=== PATIENT | female | born 1940 | race Caucasian/White ===

== ENCOUNTER 2017-02-18 17:52 | Inpatient (IN) ==
--- NOTE | 2017-02-18 18:30 | Emergency Department Note ---
Disposition Clinical Impression: Intertrochanteric fracture of left hip Qualifiers: Encounter type: initial encounter Fracture type: closed Fracture alignment: nondisplaced Qualified Code(s): S72.145A - Nondisplaced intertrochanteric fracture of left femur, initial encounter for closed fracture Disposition: Admitted As Inpatient Condition: Good Forms: ED Satisfaction Letter Time of Disposition: 20:01 Fall HPI - General Chief Complaint: ED Fall Stated Complaint: fall Time Seen by Provider: 02/18/17 17:55 Source: family, EMS Mode of arrival: EMS Limitations: other (pleasantly demented) Nursing Notes Reviewed: Yes Vital Signs Reviewed: Yes - History of Present Illness HPI Narrative: 76 year old female with family at bedside states that while she was at the alf today she had a wtinessed mechanical fall. She is currently in the faciliy due to a coccyx injury that she has. Patiet fell on her left side and injured her left elbow and hip. they are unsure if she injured her head or neck and denies any use of blood thinners. Patient points to her left elbow and hip. She - Related Data Allergies Allergy/AdvReac Type Severity Reaction Status Date / Time aspirin Allergy Hives Verified 02/18/17 18:04 codeine Allergy Hives Verified 02/18/17 18:04 Sulfa (Sulfonamide Allergy Hives Verified 02/18/17 18:04 Antibiotics) Constitutional: Denies: fever, chills, weakness, weight change Eyes: Denies: eye pain, eye discharge, vision change ENT ED: Denies: ear pain, throat pain, dental pain, hearing loss, epistaxis, congestion, dysphagia Cardiovascular: Denies: chest pain, palpitations, dyspnea on exertion, edema, syncope Respiratory: Denies: cough, dyspnea, wheezes, hemoptysis, stridor Gastrointestinal: Denies: abdominal pain, nausea, vomiting, diarrhea, constipation, hematemesis, melena, hematochezia Genitourinary: Denies: dysuria, frequency, hematuria, discharge Musculoskeletal: Reports: other (left hip and elbow pain). Denies: back pain, neck pain, arthralgia, myalgia Integumentary: Denies: rash, abrasion, lesions Neurological: Denies: headache, weakness, numbness, paresthesias, confusion, abnormal gait, vertigo Psychiatric: Denies: anxiety, depression, suicidal thoughts, homicidal thoughts , auditory hallucinations, visual hallucinations Endocrine: Denies: fatigue Hematological/Lymphatic: Denies: easy bleeding, easy bruising Allergic/Immunologic: Denies: facial swelling, urticaria Fall PMH - Past Medical History Medical history: Reports: dementia, GERD, hypertension, other Psychiatric history: Reports: anxiety, depression, panic disorder - Social History Smoking Status: Never smoker Alcohol use: Reports: none Drug use: Reports: none Physical Exam - General Limitations: no limitations General appearance: anxious, cachectic - Head Head exam: atraumatic, normocephalic, normal inspection - Eye Eye exam: Present: normal appearance, PERRL, EOMI - Expanded Eye Exam Pupils: Left: reactive - ENT ENT exam: normal exam, normal oropharynx, mucous membranes moist - Expanded ENT Exam External ear exam: Present: normal external inspection Mouth exam: Present: normal external inspection Teeth exam: Present: normal inspection Throat exam: Present: normal inspection - Neck Neck exam: Present: normal inspection, full ROM, trachea midline - Chest Chest inspection: Present: normal inspection, symmetric chest wall rise - Respiratory Respiratory exam: Present: normal lung sounds bilaterally - Cardiovascular Cardiovascular exam: Present: normal rhythm, tachycardia, normal heart sounds - Abdominal Exam Abdominal exam: Present: soft, Non-Tender. Absent: tenderness, distention, guarding, rebound, rigidity - Extremities Exam Extremities exam: Present: normal inspection, full ROM. Absent: tenderness, pedal edema - Expanded Upper Extremity Exam Shoulder exam: Present: normal inspection, full ROM Arm exam: Present: normal inspection, full ROM Elbow exam: Present: normal inspection, full ROM, tenderness (left elbow) Forearm/Wrist exam: Present: normal inspection, full ROM Hand exam: Present: normal inspection, full ROM Vascular exam: Normal: capillary refill, radial pulse - Expanded Lower Extremity Exam Hip/Pelvis exam: Present: normal inspection, tenderness (left hip tenderness, limited range of motion) Upper leg exam: Present: normal inspection, full ROM Knee exam: Present: normal inspection, full ROM Lower leg exam: Present: normal inspection, full ROM Ankle exam: Present: normal inspection, full ROM Foot/toe exam: Present: normal inspection, full ROM Neurovascular/Tendon exam: Absent: motor deficit, sensory deficit, tendon deficit - Back Exam Back exam: Present: normal inspection, full ROM. Absent: tenderness - Neurological Exam Neurological exam: Present: alert, oriented X3 - Expanded Neurological Exam Patient oriented to: Present: person, place, time Speech: Present: fluid speech Coma Scale Eye Opening: Spontaneous Coma Scale Motor Response: Obeys Commands Coma Scale Verbal Response: Oriented Coma Scale Total: 15 - Psychiatric Psychiatric exam: Present: normal affect, normal mood - Skin Skin exam: Present: warm, dry, intact, normal color Course Course Narrative: we will obtain CT/XR for evaluation - Reevaluation(s) Reevaluation #1: updated patient family on resultsl and they are agreeable to stay. Time: 20:00 - Consultations Consultation #1: discussed case with Dr. Keith and he has agreed to see as consult in the hospital Time: 19:58 Consultation #2: discussed case with Dr. Gamboa and he has accepted patinet to his service. Time: 20:01 Vital Signs Temperature 98.4 F 02/18/17 17:58 Pulse Rate 117 02/18/17 17:58 Respiratory Rate 18 02/18/17 17:58 Blood Pressure 155/88 02/18/17 17:58 O2 Sat by Pulse Oximetry 94 02/18/17 17:58 Temperature 98.4 F 02/18/17 17:58 Pulse Rate 117 02/18/17 17:58 Respiratory Rate 18 02/18/17 17:58 Blood Pressure 155/88 02/18/17 17:58 O2 Sat by Pulse Oximetry 94 02/18/17 17:58 Oxygen Delivery Oxygen Delivery Room Air
[2017-02-18] MEDS ORDERED: Ondansetron 4 MG/2 ML VIAL IVP ONE (19:59)
[2017-02-18] MEDS ORDERED: *HR* Morphine 2 MG/ML SYRINGE IVP ONE (19:59)
[2017-02-18] MEDS ORDERED: Ondansetron 4 MG/2 ML VIAL IVP PRN (20:58)
[2017-02-18] MEDS ORDERED: *HR* Morphine 2 MG/ML SYRINGE IVP PRN (20:58)
[2017-02-18] MEDS ORDERED: traMADol 50 MG TABLET PO PRN (20:59)
[2017-02-18] MEDS ORDERED: OLANZapine 5 MG TAB.RAPDIS PO PRN (20:59)
--- NOTE | 2017-02-18 21:10 | Internal Med History&Physical ---
Date of Encounter: 02/22/17 Time of Encounter: 21:08 Assessment and Plan (1) Intertrochanteric fracture of left hip Current visit: Yes Status: Acute Orthopedic consultation. We check for labs. Electrocardiogram. Physical therapy and occupational therapy and social workers to see the patient. Patient is focal. Qualifiers: Encounter type: initial encounter Fracture type: closed Fracture alignment: nondisplaced Qualified Code(s): S72.145A - Nondisplaced intertrochanteric fracture of left femur, initial encounter for closed fracture (2) Depression Current visit: Yes Status: Acute Continue her psychiatric medications. She denies any suicidal ideation. Daughter mentioned that she has depression with some catatonic features specially when she gets anxious Qualifiers: Qualified Code(s): F32.9 - Major depressive disorder, single episode, unspecified (3) Preoperative clearance Current visit: Yes Status: Acute With regards to preoperative clearance have discussed with the daughter that patient will have moderate perioperative cardiac risk related to poor functional capacity. I will check patient labs 12-lead electrocardiogram and will provide official risk assessment afterwards (4) Urinary tract infection Current visit: Yes Status: Acute Patient is a ciprofloxacin should be completed 02/20/2017 continue course. Qualifiers: Qualified Code(s): N39.0 - Urinary tract infection, site not specified Internal Medicine - H&P: HPI Chief complaint: fall History of present illness: Ms. Arias is a 76 year old female patient who had moved to a intermediate facility 2 weeks ago after she had fallen and sustained coccyx fracture and after it was noted that she is having functional decline and significant weight loss approximately 20 to 25 pounds over the past 6 month presents to the emergency room today after a fall. She was noted to have a mechanical fall at the intermediate. She denied passing out. Work up in the emergency room showed evidence of left-sided hip fracture. Patient has been falling more frequently the past 6 months. Patient's daughter said that she has been more depressed recently lost significant weight denied any suicidal ideations. No notable focal weakness. Patient is on ciprofloxacin for urinary tract infection should complete in 2 days Past Med Surg Social Fam HX - Past Medical History Medical history: dementia, GERD, hypertension, other Psychiatric history: anxiety, depression, panic disorder - Social History Smoking Status: Never smoker Alcohol use: none Drug use: none - Family History Father Twin of Family Member: Yes, Fraternal Living Status: Hx Family Cardiac Disorders: Yes Internal Medicine - H&P: Meds Acetaminophen [Tylenol] 650 mg PO Q8H PRN 02/18/17 [History] Ciprofloxacin HCl [Cipro] 500 mg PO BID 02/18/17 [History] Multivitamin-Min/Iron/FA/Vit K [Multi-Day Plus Minerals Tablet] 1 each PO DAILY 02/18/17 [History] OLANZapine [Zyprexa] 1.25 mg PO DAILY PRN 02/18/17 [History] PARoxetine HCl [Paroxetine HCl] 5 mg PO TID 02/18/17 [History] Polyethylene Glycol 3350 [MiraLAX] 17 gm PO DAILY PRN 02/18/17 [History] Tramadol HCl [Ultram] 50 mg PO Q6H PRN 02/18/17 [History] 3 Allergy/AdvReac Type Severity Reaction Status Date / Time aspirin Allergy Hives Verified 02/18/17 18:04 codeine Allergy Hives Verified 02/18/17 18:04 Sulfa (Sulfonamide Allergy Hives Verified 02/18/17 18:04 Antibiotics) All Systems PM: A 10-system review of systems was performed and is negative for pertinent findings except as documented above in the HPI. Review of systems: 10 point review of systems is negative except for HPI - Constitutional Vitals: Temp Pulse Resp BP Pulse Ox 98.4 F 117 18 155/88 94 02/18/17 17:58 02/18/17 17:58 02/18/17 17:58 02/18/17 17:58 02/18/17 17:58 Internal Med - H&P Results - Labs CBC & Chem 7: 02/22/17 06:01 02/21/17 04:54
[2017-02-18 21:48] LABS: Basophils % 0.1 %; Hematocrit 32.7 % (35.3-44.9); Hemoglobin 10.6 g/dL (11.5-15.4); Immature Granulocytes % 0.4 % (0-4); Immature Platelets 1.4 % (1.1-6.1); Lymphocytes # 0.7 K/mcL (0.6-4.6); Lymphocytes % 5.6 %; Mean Corpuscular HGB Conc 32.4 g/dL (31.6-35.5); Mean Corpuscular Hemoglobin 27.7 pg (28.0-33.3); Mean Corpuscular Volume 85.4 fL (83.0-100.0); Mean Platelet Volume 8.5 fL (9.4-12.4); Monocytes # 0.6 K/mcL (0.0-1.3); Monocytes % 4.8 %; Neutrophils # 10.7 K/mcL (1.6-8.9); Platelet Count 373 K/mcL (140-400); Red Blood Count 3.83 M/mcL (3.82-4.97); Red Cell Distribution Width 13.8 % (11.5-14.5); Segmented Neutrophils % 89.1 %
[2017-02-18 22:03] LABS: Alanine Aminotransferase 35 Units/L (0-55); Albumin 3.4 g/dL (3.5-5.0); Albumin/Globulin Ratio 0.9 (1.1-2.2); Alkaline Phosphatase 312 Units/L (38-126); Aspartate Amino Transferase 24 Units/L (5-34); BUN/Creatinine Ratio 21 (6-26); Bilirubin,Total 0.9 mg/dL (0.2-1.2); Blood Urea Nitrogen 16 mg/dL (7-20); Calcium 9.9 mg/dL (8.6-10.8); Carbon Dioxide 28 mEq/L (19-29); Chloride 99 mEq/L (98-109); Globulin 3.7 g/dL (2.4-3.5); Glucose 129 mg/dL (70-99); Magnesium 1.9 mg/dL (1.6-2.6); Osmolality,Calculated 285 (280-300); Potassium 4.6 mEq/L (3.5-4.5); Sodium 136 mEq/L (136-145); Total Protein 7.1 g/dL (6.0-8.3); eGFR For African Americans > 60 (> 60); eGFR For Non-African Americans > 60 (> 60)
[2017-02-18 22:23] LABS: INR 1.1; Prothrombin Time 11.7 Seconds (9.4-12.1)
[2017-02-18 22:26] LABS: Activated Partial Thrombo Time 24.9 Seconds (26.0-36.0)
[2017-02-19] MEDS ORDERED: D5% in 0.9% NACL 1,000 ML IVC SCH (00:15)
--- NOTE | 2017-02-19 07:38 | Orthopedic Consult Note ---
Date of Encounter: 02/19/17 Time of Encounter: 07:36 History of Present Illness HPI: Ms. Arias is a 76 year old female Status post falls in the past presently in a half-way for the past 2 weeks recovery from spinal fractures. Patient with a new fall now with left hip pain. Patient is awake and alert but not oriented. Discussed patient's normal state with her daughter patient normally ambulates on her own has bouts of dementia and depression. Physical exam Left lower extremity shortened externally rotated decreased range of motion secondary to pain CT scan reviewed shows a left intertrochanteric hip fracture. Recommendation based on previous activity level left hip open reduction intramedullary nail fixation. Risks benefits as well as recovery reviewed with the daughter. Plan is for surgery 7 AM Tuesday Past Med Surg Social Fam HX - Past Medical History Medical history: dementia, GERD, hypertension, other Psychiatric history: anxiety, depression, panic disorder - Social History Smoking Status: Never smoker Alcohol use: none Drug use: none - Family History Father Twin of Family Member: Yes, Fraternal Living Status: Hx Family Cardiac Disorders: Yes Medications and Allergies Acetaminophen [Tylenol] 650 mg PO Q8H PRN 02/18/17 [History] Ciprofloxacin HCl [Cipro] 500 mg PO BID 02/18/17 [History] Multivitamin-Min/Iron/FA/Vit K [Multi-Day Plus Minerals Tablet] 1 each PO DAILY 02/18/17 [History] OLANZapine [Zyprexa] 1.25 mg PO DAILY PRN 02/18/17 [History] PARoxetine HCl [Paroxetine HCl] 5 mg PO TID 02/18/17 [History] Polyethylene Glycol 3350 [MiraLAX] 17 gm PO DAILY PRN 02/18/17 [History] Tramadol HCl [Ultram] 50 mg PO Q6H PRN 02/18/17 [History] 3 Allergy/AdvReac Type Severity Reaction Status Date / Time aspirin Allergy Hives Verified 02/18/17 18:04 codeine Allergy Hives Verified 02/18/17 18:04 Sulfa (Sulfonamide Allergy Hives Verified 02/18/17 18:04 Antibiotics) All Systems Reviewed: A 10-system review of systems was performed and is negative for pertinent findings except as documented above in the HPI. Physical Exam - Constitutional Vitals: Temp Pulse Resp BP Pulse Ox 97.7 F 105 15 123/81 94 02/19/17 07:11 02/19/17 07:11 02/19/17 07:11 02/19/17 07:11 02/19/17 07:11 Results - Labs Result Diagrams: 02/18/17 21:39 02/18/17 21:39 Labs: Abnormal lab results WBC 12.0 K/mcL (4.3-11.1) H 02/18/17 21:39 Hgb 10.6 g/dL (11.5-15.4) L 02/18/17 21:39 Hct 32.7 % (35.3-44.9) L 02/18/17 21:39 MCH 27.7 pg (28.0-33.3) L 02/18/17 21:39 MPV 8.5 fL (9.4-12.4) L 02/18/17 21:39 Neutrophils # 10.7 K/mcL (1.6-8.9) H 02/18/17 21:39 APTT 24.9 Seconds (26.0-36.0) L 02/18/17 21:39 Potassium 4.6 mEq/L (3.5-4.5) H 02/18/17 21:39 Glucose 129 mg/dL (70-99) H 02/18/17 21:39 POC Glucose 115 (58-89) H 02/19/17 00:09 Alkaline Phosphatase 312 Units/L (38-126) H 02/18/17 21:39 Albumin 3.4 g/dL (3.5-5.0) L 02/18/17 21:39 Globulin 3.7 g/dL (2.4-3.5) H 02/18/17 21:39 Albumin/Globulin Ratio 0.9 (1.1-2.2) L 02/18/17 21:39 H & H 02/18/17 Range/Units 21:39 Hgb 10.6 L (11.5-15.4) g/dL Hct 32.7 L (35.3-44.9) % All other labs normal. Consult Discharge Plan - Plan Referrals: Dusty Quiroz MD [Primary Care Provider] -
[2017-02-19] MEDS ORDERED: Ondansetron ODT 4 MG TAB.RAPDIS SL PRN (11:11)
[2017-02-19] MEDS ORDERED: *HR* OxyCODONE/APAP 5/325 TABLET PO PRN (11:11)
[2017-02-19] MEDS ORDERED: *HR* Morphine 2 MG/ML SYRINGE IVP PRN (11:12)
--- NOTE | 2017-02-19 11:26 | Internal Med Progress Note ---
Date of Encounter: 02/19/17 Time of Encounter: 11:25 - Assessment and plan (1) Intertrochanteric fracture of left hip Current Visit: Yes Status: Acute Assessment and plan: Reviewed imaging studies Ortho on board scheduled for surgery in AM Reviewed CXR- no acute infiltrates / consolidations CT of Pelvis : Left hip intertrochanteric, comminuted and angulated fx Subacute b/l sacral aler fractures EKG - Sinus tachycardia, VR -105, LVH changes. No St elevation / depression Will get a 2 D Echo Pt is at intermediate risk for major surgeries like ORIF Will check prealbumin levels Qualifiers: Encounter type: initial encounter Fracture type: closed Fracture alignment: nondisplaced Qualified Code(s): S72.145A - Nondisplaced intertrochanteric fracture of left femur, initial encounter for closed fracture (2) Failure to thrive in adult Current Visit: Yes Status: Acute Assessment and plan: Possible due to Depression and underline dementia will talk to family check Pre albumin levels Nutrition consulted Protein supplements with each meal (3) Dementia Current Visit: Yes Status: Acute Assessment and plan: Will tlak to family about this Qualifiers: Qualified Code(s): F03.90 - Unspecified dementia without behavioral disturbance (4) Depression Current Visit: Yes Status: Acute Assessment and plan: Resumed home meds Qualifiers: Qualified Code(s): F32.9 - Major depressive disorder, single episode, unspecified (5) Urinary tract infection Current Visit: Yes Status: Acute Assessment and plan: will finish home PO abx Qualifiers: Qualified Code(s): N39.0 - Urinary tract infection, site not specified (6) DVT prophylaxis Current Visit: Yes Status: Acute Assessment and plan: Started her on Lovenox SQ inj (7) Protein-calorie malnutrition, severe Current Visit: Yes Status: Acute - Subjective Interval history: Ms. Arias is a 76 year old female patient who had moved to a custodial facility 2 weeks ago after she had fallen and sustained coccyx fracture and after it was noted that she is having functional decline and significant weight loss approximately 20 to 25 pounds over the past 6 month presents to the emergency room today after a fall. She was noted to have a mechanical fall at the custodial. She denied passing out. Work up in the emergency room showed evidence of left-sided hip fracture. Patient has been falling more frequently the past 6 months. Pt is alert, awake and oriented to self only. She did followed few commands. Denied any CP / SOB. - Constitutional Vitals: Temp Pulse Resp BP Pulse Ox 97.7 F 96 16 151/86 93 02/19/17 10:38 02/19/17 10:38 02/19/17 10:38 02/19/17 10:38 02/19/17 10:38 General appearance: Present: A&O X 1, pleasant, no acute distress - Head Head exam: Present: atraumatic, normal inspection - Respiratory Respiratory exam: Present: decreased breath sounds, wheezes. Absent: rales, respiratory distress, rhonchi - Cardiovascular Cardiovascular exam: Present: RRR, +S1, +S2. Absent: diastolic murmur, gallop, rubs, systolic murmur - GI/Abdominal GI/Abdominal exam: Present: normal bowel sounds, soft. Absent: rebound, rigid, tenderness - Extremities Exam Extremities exam: Present: tenderness (Left hip). Absent: calf tenderness, pedal edema Additional comments: Decreased ROM in Left hip due to pain - Neurological Exam Neurological exam: Present: alert, altered - Psychiatric Psychiatric exam: Present: depressed Internal Medicine: Result - Labs CBC & Chem 7: 02/18/17 21:39 02/18/17 21:39 Labs: Short CBC 02/18/17 Range/Units 21:39 WBC 12.0 H (4.3-11.1) K/mcL Hgb 10.6 L (11.5-15.4) g/dL Hct 32.7 L (35.3-44.9) % Plt Count 373 (140-400) K/mcL Neutrophils # 10.7 H (1.6-8.9) K/mcL BMP 02/18/17 21:39 Sodium 136 Potassium 4.6 H Chloride 99 Carbon Dioxide 28 BUN 16 Creatinine 0.75 Glucose 129 H Calcium 9.9 Liver Function 02/18/17 Range/Units 21:39 Total Bilirubin 0.9 (0.2-1.2) mg/dL AST 24 (5-34) Units/L ALT 35 (0-55) Units/L Alkaline Phosphatase 312 H (38-126) Units/L Albumin 3.4 L (3.5-5.0) g/dL - ABG Interpretation ABG results: PT/INR, D-dimer PT 11.7 Seconds (9.4-12.1) 02/18/17 21:39 Consult Discharge Plan - Plan Referrals: Dusty Quiroz MD [Primary Care Provider] -
[2017-02-19] MEDS ORDERED: *HR* Enoxaparin 30 MG/0.3 ML SYRINGE SQ SCH (11:39)
--- NOTE | 2017-02-19 17:05 | Anesthesia Evaluation PreOp ---
Date of Encounter: 02/19/17 Time of Encounter: 17:03 - Past History Planned Operation: Left Hip IM Nailing Cardiac History: HTN (not medically treated--per family, associated with pt's panic d/o) Pulmonary History: Denies Any Significant HX TIP TESTER History: Other (H/O dementia--per family, pt does not have dementia but can be in near catatonic state {unresponsive} when severely depressed or anxious) Other Medical History: Other (anxiety/depression/panic disorder--per family, can be severe with pt in near catatonic state ; S/P coccyx fracture 2 weeks ago) Anesthesia History: Past Anesthesia (no prior general anesthesia) Alcohol Use: none Drug use: none Medications and Allergies Acetaminophen [Tylenol] 650 mg PO Q8H PRN 02/18/17 [History] Ciprofloxacin HCl [Cipro] 500 mg PO BID 02/18/17 [History] Multivitamin-Min/Iron/FA/Vit K [Multi-Day Plus Minerals Tablet] 1 each PO DAILY 02/18/17 [History] OLANZapine [Zyprexa] 1.25 mg PO DAILY PRN 02/18/17 [History] PARoxetine HCl [Paroxetine HCl] 5 mg PO TID 02/18/17 [History] Polyethylene Glycol 3350 [MiraLAX] 17 gm PO DAILY PRN 02/18/17 [History] Tramadol HCl [Ultram] 50 mg PO Q6H PRN 02/18/17 [History] 3 Allergy/AdvReac Type Severity Reaction Status Date / Time aspirin Allergy Hives Verified 02/18/17 18:04 codeine Allergy Hives Verified 02/18/17 18:04 Sulfa (Sulfonamide Allergy Hives Verified 02/18/17 18:04 Antibiotics) - Meds/Allergy Pre-op Review Medications Reviewed: Yes Allergies Reviewed: Yes Beta Blockers on Current Med List: No Anesthesia Results - Labs 02/18/17 21:39 02/18/17 21:39 Laboratory Tests 02/18/17 21:39 PT 11.7 INR 1.1 APTT 24.9 L - Imaging EKG: report reviewed (02/18/2017 ST, moderate voltage criteria for LVH, consider noraml variant) Additional studies: 02/19/2017 Echo Impressions: Normal LV systolic function, LVEF 60%. Mild left ventricular diastolic dysfunction. Normal right ventricular size and function. No significant valvular dysfunction. No evidence of pulmonary hypertension. Anesthesia Exam Vital Signs/O2 Sat/Glucose, Most Recent Temp Pulse Resp BP Pulse Ox 97.8 F 105 18 150/80 94 02/19/17 16:33 02/19/17 16:33 02/19/17 16:33 02/19/17 16:33 02/19/17 16:33 Blood Glucose* 122 Height: 5'4''/1.63 m Weight: 72 lbs/32.84 kg - HEENT Mallampati: II Teeth: Edentulous Denture Type: Upper: Complete, Lower: Complete Oral Opening: Greater than 3 - TIP TESTER LOC: Unable to assess (pt somnolent but arousable; able to follow some simple commands but not oriented; history obtained from pt's family {including POA}-- family describes pt's normal state as being oriented but state of confusion/ catatonia arises when severely depressed/anxious) - Cardiac Rhythm: Regular Murmur: Systolic - Pulmonary Breath Sounds: bilateral Clear (distant BS) Respiratory Effort: Symmetrical Anesthesia Assess/Plan ASA Score: 3 (Patient's family (including POA) understand that pt is at increased risk for perioperative complications including myocardial infarct, arrhythmias, CVA, post op vent support/ICU stay, and . Patient's family wish to proceed.) Modified Lukas Scale for Level of Consciousness: Asleep with sluggish response to stimulus (pt responsive to some simple commands) Anesthetic Plan: General Monitoring Plan: Standard Monitors Recovery Plan: PACU
[2017-02-20 01:37] LABS: Basophils % 0.1 %; Hematocrit 30.8 % (35.3-44.9); Immature Granulocytes % 0.4 % (0-4); Immature Platelets 1.6 % (1.1-6.1); Lymphocytes # 0.6 K/mcL (0.6-4.6); Lymphocytes % 5.8 %; Mean Corpuscular HGB Conc 32.5 g/dL (31.6-35.5); Mean Corpuscular Hemoglobin 28.2 pg (28.0-33.3); Mean Platelet Volume 9.1 fL (9.4-12.4); Monocytes # 0.7 K/mcL (0.0-1.3); Monocytes % 6.8 %; Neutrophils # 8.5 K/mcL (1.6-8.9); Platelet Count 323 K/mcL (140-400); Red Blood Count 3.54 M/mcL (3.82-4.97); Red Cell Distribution Width 13.7 % (11.5-14.5); Segmented Neutrophils % 86.9 %
[2017-02-20 01:53] LABS: BUN/Creatinine Ratio 28 (6-26); Blood Urea Nitrogen 21 mg/dL (7-20); Calcium 9.7 mg/dL (8.6-10.8); Carbon Dioxide 27 mEq/L (19-29); Chloride 98 mEq/L (98-109); Chol/HDL Ratio 3.7 (0-4.9); Cholesterol 183 mg/dL (< 200); Glucose 111 mg/dL (70-99); HDL Cholesterol 50 mg/dL (40-59); LDL Cholesterol,Calculated 103 mg/dL (0-99); Osmolality,Calculated 282 (280-300); Potassium 4.4 mEq/L (3.5-4.5); Sodium 134 mEq/L (136-145); Triglycerides 152 mg/dL (< 150); eGFR For African Americans > 60 (> 60); eGFR For Non-African Americans > 60 (> 60)
[2017-02-20 02:25] LABS: Thyroid Stimulating Hormone 1.366 mcIU/mL (0.350-4.840)
[2017-02-20] MEDS ORDERED: Lidocaine -MPF 4% 5 ML AMPUL ONE (07:28)
[2017-02-20] MEDS ORDERED: *HR* Etomidate 40 MG/20 ML VIAL IVP ONE (07:28)
[2017-02-20] MEDS ORDERED: Lidocaine -MPF 2% 2 ML VIAL ONE (07:28)
[2017-02-20] MEDS ORDERED: *HR* FentaNYL (PF) 100 MCG/2 ML VIAL ONE (07:29)
[2017-02-20] MEDS ORDERED: *HR* Propofol 200 MG/20 ML VIAL IVP ONE (07:29)
[2017-02-20] MEDS ORDERED: Acetaminophen IV 1,000 MG/100 ML INFUS..BTL ONE (07:42)
[2017-02-20] MEDS ORDERED: Lacri-Lube 3.5 GM TUBE ONE (08:03)
[2017-02-20] MEDS ORDERED: ceFAZolin 2,000 MG in D5% in Water 100 ML IVPB ONE (08:20)
[2017-02-20] MEDS ORDERED: Ondansetron 4 MG/2 ML VIAL ONE (08:36)
[2017-02-20] MEDS ORDERED: Dexamethasone 4 MG/ML VIAL ONE (08:36)
--- NOTE | 2017-02-20 08:39 | Orthopedic Operative Note ---
Date of procedure: 02/20/17 Pre-op diagnosis: Left hip intratrochanteric fracture Post-op diagnosis: same Procedure: Procedure: Left hip open reduction intramedullary nail fixation Estimated blood loss: 50 cc Hardware: Metal: 10 x 130 Synthes TFN, 85 helical blade, 36 distal locking bolt Operative procedure: The patient was brought to the operating room and placed on the operating room table. After general anesthesia was administered the well leg was place in the well leg treviño and the operative leg was placed in the fracture leg treviño. All pressure points were padded appropriately. The operative extremity was prepped and draped in the sterile surgical fashion patient received IV antibiotic prior to skin incision. A standard direct lateral approach was made over the entry point of the greater trochanter, the incision was made through the skin and subcutaneous tissue hemostasis was obtained with Bovie cautery. Using careful sharp dissection the fascia was identified and incised, flouroscopic assistance was used to identify the entry point. The guidepin was placed at the entry point using fluroscopic assistance, it was over reamed with the proximal reamer. The 10 x 130 degree nail was placed through the entry hole, across the fracture site into the distal fragment the position was confirmed with fluroscopy. A guide pin was placed through the proximal locking guide from the lateral femur through the nail across the fracture site into the femoral head, it was over reamed with the reamer. The 85 helical blade was placed over the guide pin through the nail into the femoral head, locked in place with the proximal locking bolt. The 36 mm Distal locking bolt was placed through the distal locking guide. position of hardware and fracture reduction found to be acceptable with fluroscopic assistance. The wound was irrigated. Fascia was closed with a running #2 PDS suture. The deep tissue was irrigated and closed deep with #1 PDS suture superficially with 0 PDS suture and skin was closed with kyle. The patient was placed in a sterile dressing The patient was extubated and transferred to the recovery room in stable condition. Anesthesia: GETA Surgeon: Edward Keith Condition: stable Disposition: PACU
[2017-02-20] MEDS ORDERED: *HR* Promethazine 25 MG/ML VIAL IVP PRN (08:57)
[2017-02-20] MEDS ORDERED: *HR* HYDROmorphone (PF) 1 MG/ML SYRINGE IVP PRN (08:57)
[2017-02-20 09:36] LABS: Hematocrit 30.8 % (35.3-44.9); Hemoglobin 9.9 g/dL (11.5-15.4)
[2017-02-20] MEDS: *HR* Labetalol 20 MG/4 ML SYRINGE IVP PRN ×3 (09:52→10:15)
--- NOTE | 2017-02-20 10:29 | Anesthesia Evaluation Post Op ---
Date of Encounter: 02/20/17 Time of Encounter: 10:27 - Vital Signs Vital Signs: Vital Signs/O2 Sat/Glucose, Most Current Temp Pulse Resp BP Pulse Ox 02/20/17 10:20 86 18 139/86 90 02/20/17 10:10 91 18 168/96 90 02/20/17 10:00 99.8 F H 92 18 170/105 90 02/20/17 09:50 107 18 164/116 90 02/20/17 09:40 107 18 182/108 91 02/20/17 09:30 104 16 166/97 92 02/20/17 09:20 100.3 F H 102 16 159/90 93 02/20/17 09:10 79 16 147/82 100 02/20/17 09:00 76 12 119/74 100 02/20/17 08:50 100 F H 79 10 104/66 99 02/20/17 06:29 98.7 F 105 16 134/79 96 - Lungs Lungs: Clear Ascult./Percussion - Airway Airway: Non-obstructed - Cardiovascular Baseline Rhythm - Mental Status Mental Status: Uncooperative, Baseline Status - Pain Pain Scale: 1 Pain Scale used: John-Kam (Faces) (1) - Nausea Vomiting Nausea Vomiting: Not Present - Hydration Hydration: Tolerates oral liquids - Discharge PostOp Status: Transfer Patient to floor Anes Supervising Prov Stmt: Pt seen/evaluated. VSS and pt has met criteria for discharge to floor. - MD Fer
[2017-02-20] MEDS ORDERED: traMADol 50 MG TABLET PO PRN (10:53)
[2017-02-20] MEDS ORDERED: Ondansetron ODT 4 MG TAB.RAPDIS SL PRN (10:53)
[2017-02-20] MEDS ORDERED: Naloxone 0.4 MG/ML INJ IVP PRN (10:53)
[2017-02-20] MEDS ORDERED: *HR* Morphine 2 MG/ML SYRINGE IVP PRN (10:53)
[2017-02-20] MEDS ORDERED: Ondansetron 4 MG/2 ML VIAL IVP PRN (10:53)
[2017-02-20] MEDS ORDERED: ceFAZolin 2,000 MG in D5% in Water 100 ML IVPB SCH (10:53)
[2017-02-20] MEDS ORDERED: OLANZapine 5 MG TAB.RAPDIS PO PRN (10:53)
--- NOTE | 2017-02-20 16:03 | Internal Med Progress Note ---
Date of Encounter: 02/20/17 Time of Encounter: 16:01 - Assessment and plan (1) Intertrochanteric fracture of left hip Current Visit: Yes Status: Acute Assessment and plan: s/p Left hip open reduction intramedullary nail fixation Reviewed 2 D Echo - Normal LVEF 60%, mild diastolic dysfunction Cont post op care as per ortho PT / OT eval on heparin for DVT prophylaxis Qualifiers: Encounter type: initial encounter Fracture type: closed Fracture alignment: nondisplaced Qualified Code(s): S72.145A - Nondisplaced intertrochanteric fracture of left femur, initial encounter for closed fracture (2) Failure to thrive in adult Current Visit: Yes Status: Acute Assessment and plan: Possible due to Depression Talked to family.. as per them she has been having major depression with maniac episodes from last 1 to 1 1/2 yrs.. She is been following with psychiatrist , currently he is titrating her Paxil for anxiety So will inc Paxil to 10mg BID today Her Pre albumin levels at low normal @ 16 Nutrition consulted Protein supplements with each meal (3) Dementia Current Visit: Yes Status: Acute Assessment and plan: family denied of any dementia it is more like severe depression Qualifiers: Qualified Code(s): F03.90 - Unspecified dementia without behavioral disturbance (4) Depression Current Visit: Yes Status: Acute Assessment and plan: Resumed home meds inc Paxil to 10mg BID for her anxiety / agitation.. Pt's family ok to try Haldol for now Qualifiers: Qualified Code(s): F32.9 - Major depressive disorder, single episode, unspecified (5) Urinary tract infection Current Visit: Yes Status: Acute Assessment and plan: will finish home PO abx Cipro Qualifiers: Qualified Code(s): N39.0 - Urinary tract infection, site not specified (6) DVT prophylaxis Current Visit: Yes Status: Acute Assessment and plan: Started her on Lovenox SQ inj (7) Protein-calorie malnutrition, severe Current Visit: Yes Status: Acute Assessment and plan: Product Development Carpenter consulted - Subjective Interval history: Ms. Arias is a 76 year old female patient who had moved to a retirement facility 2 weeks ago after she had fallen and sustained coccyx fracture and after it was noted that she is having functional decline and significant weight loss approximately 20 to 25 pounds over the past 6 month presents to the emergency room today after a fall. She was noted to have a mechanical fall at the retirement. She denied passing out. Work up in the emergency room showed evidence of left-sided hip fracture. Patient has been falling more frequently the past 6 months. Pt is alert, awake and oriented to person and place. she is following all the commands. Denied any CP / SOB. Talked to the pt's both daughters at bed side and explained to them about current care. - Constitutional Vitals: Temp Pulse Resp BP Pulse Ox 98.8 F 94 16 155/86 95 02/20/17 12:10 02/20/17 12:10 02/20/17 12:10 02/20/17 12:10 02/20/17 12:10 General appearance: Present: A&O X 2, mild distress (anxious) - Head Head exam: Present: atraumatic, normal inspection - Respiratory Respiratory exam: Present: CTAB. Absent: accessory muscle use, rales, rhonchi, wheezes - Cardiovascular Cardiovascular exam: Present: RRR, +S1, +S2. Absent: diastolic murmur, gallop, rubs, systolic murmur - GI/Abdominal GI/Abdominal exam: Present: soft, no peritoneal signs. Absent: distended, tenderness - Extremities Exam Extremities exam: Absent: calf tenderness, pedal edema, tenderness Additional comments: clean incision and dressing noticed over Left hip - Neurological Exam Neurological exam: Present: alert - Psychiatric Psychiatric exam: Present: anxious Internal Medicine: Result - Labs CBC & Chem 7: 02/20/17 09:28 02/20/17 01:15 Labs: Short CBC 02/20/17 02/20/17 Range/Units 01:15 09:28 WBC 9.8 (4.3-11.1) K/mcL Hgb 10.0 L 9.9 L (11.5-15.4) g/dL Hct 30.8 L 30.8 L (35.3-44.9) % Plt Count 323 (140-400) K/mcL Neutrophils # 8.5 (1.6-8.9) K/mcL BMP 02/20/17 01:15 Sodium 134 L Potassium 4.4 Chloride 98 Carbon Dioxide 27 BUN 21 H Creatinine 0.74 Glucose 111 H Calcium 9.7 - ABG Interpretation ABG results: PT/INR, D-dimer PT 11.7 Seconds (9.4-12.1) 02/18/17 21:39 - Impressions Impressions Fluoroscopy 02/20/17 00:00 IMPRESSION: Intraprocedural fluoroscopic spot images as above. See separate procedure report for more information. D/ / 02/20/2017 11:18:49 Samra Higgins MD / [facility] Interpreting Provider: Samra Higgins MD Hip X-Ray 02/20/17 07:45 IMPRESSION: Status post left hip surgery. D/ / Samina Duffy Cha, MD / Samina Duffy Cha, MD Interpreting Provider: Samina Duffy Cha, MD - VTE Documentation of Mechanical Device: Venous foot pump, device Consult Discharge Plan - Plan Referrals: Dusty Quiroz MD [Primary Care Provider] -
[2017-02-20] MEDS: ceFAZolin 2,000 MG in D5% in Water 100 ML IVPB SCH (16:48)
[2017-02-20] MEDS: *HR* Heparin 5,000 UNIT/ML VIAL SQ SCH (16:48)
[2017-02-20] MEDS: *HR* OxyCODONE/APAP 5/325 TABLET PO PRN (16:50)
[2017-02-21] MEDS: ceFAZolin 2,000 MG in D5% in Water 100 ML IVPB SCH (00:21)
[2017-02-21 05:18] LABS: Hematocrit 28.7 % (35.3-44.9); Immature Granulocytes % 0.5 % (0-4); Lymphocytes # 0.7 K/mcL (0.6-4.6); Lymphocytes % 7.4 %; Mean Corpuscular HGB Conc 31.4 g/dL (31.6-35.5); Mean Corpuscular Hemoglobin 27.4 pg (28.0-33.3); Mean Corpuscular Volume 87.2 fL (83.0-100.0); Mean Platelet Volume 9.3 fL (9.4-12.4); Monocytes # 0.7 K/mcL (0.0-1.3); Monocytes % 7.3 %; Neutrophils # 8.5 K/mcL (1.6-8.9); Platelet Count 316 K/mcL (140-400); Red Blood Count 3.29 M/mcL (3.82-4.97); Red Cell Distribution Width 13.6 % (11.5-14.5); Segmented Neutrophils % 84.8 %
[2017-02-21 05:29] LABS: BUN/Creatinine Ratio 31 (6-26); Blood Urea Nitrogen 24 mg/dL (7-20); Calcium 9.4 mg/dL (8.6-10.8); Carbon Dioxide 30 mEq/L (19-29); Chloride 99 mEq/L (98-109); Glucose 114 mg/dL (70-99); Osmolality,Calculated 289 (280-300); Potassium 4.5 mEq/L (3.5-4.5); Sodium 137 mEq/L (136-145); eGFR For African Americans > 60 (> 60); eGFR For Non-African Americans > 60 (> 60)
[2017-02-21] MEDS: *HR* Heparin 5,000 UNIT/ML VIAL SQ SCH ×2 (05:41→17:06)
--- NOTE | 2017-02-21 08:03 | Internal Med Progress Note ---
Date of Encounter: 02/21/17 Time of Encounter: 08:01 - Assessment and plan (1) Intertrochanteric fracture of left hip Current Visit: Yes Status: Acute Assessment and plan: s/p Left hip open reduction intramedullary nail fixation POD #1 So far stable Hb Cont post op care as per ortho PT / OT eval on SQ heparin for DVT prophylaxis May need out pt bone scan and further treatment for osteoporosis Vit D levels - P Reviewed 2 D Echo - Normal LVEF 60%, mild diastolic dysfunction Qualifiers: Encounter type: initial encounter Fracture type: closed Fracture alignment: nondisplaced Qualified Code(s): S72.145A - Nondisplaced intertrochanteric fracture of left femur, initial encounter for closed fracture (2) Failure to thrive in adult Current Visit: Yes Status: Acute Assessment and plan: Possibly due to Depression Talked to family.. as per them she has been having major depression with maniac episodes from last 1 to 1 1/2 yrs.. She is been following with psychiatrist , currently he is titrating her Paxil for anxiety Seems to be better today with Paxil to 10mg BID Her Pre albumin levels at low normal @ 16 Nutrition consulted Protein supplements with each meal TSH - WNL Vit D, B12, Folic acid- P (3) Dementia Current Visit: Yes Status: Acute Assessment and plan: family denied of any dementia it is more like severe depression Qualifiers: Qualified Code(s): F03.90 - Unspecified dementia without behavioral disturbance (4) Depression Current Visit: Yes Status: Acute Assessment and plan: Resumed home meds inc Paxil to 10mg BID for her anxiety / agitation.. Pt's family ok to try Haldol for now will cont Haldol PRN for now Qualifiers: Qualified Code(s): F32.9 - Major depressive disorder, single episode, unspecified (5) Urinary tract infection Current Visit: Yes Status: Acute Assessment and plan: finished home PO abx Cipro by today Qualifiers: Qualified Code(s): N39.0 - Urinary tract infection, site not specified (6) DVT prophylaxis Current Visit: Yes Status: Acute Assessment and plan: Started her on Lovenox SQ inj (7) Protein-calorie malnutrition, severe Current Visit: Yes Status: Acute Assessment and plan: Chief Of Party consulted - Subjective Interval history: Ms. Arias is a 76 year old female patient who had moved to a senior living facility 2 weeks ago after she had fallen and sustained coccyx fracture and after it was noted that she is having functional decline and significant weight loss approximately 20 to 25 pounds over the past 6 month presents to the emergency room today after a fall. She was noted to have a mechanical fall at the senior living. She denied passing out. Work up in the emergency room showed evidence of left-sided hip fracture. Patient has been falling more frequently the past 6 months. Pt is alert, awake and oriented to person and place. she is following all the commands. Denied any CP / SOB. No events over night. Pt seems to be less anxious today - Constitutional Vitals: Temp Pulse Resp BP Pulse Ox 98.6 F 91 16 148/78 97 02/21/17 06:45 02/21/17 06:45 02/21/17 06:45 02/21/17 06:45 02/21/17 06:45 General appearance: Present: A&O X 2, pleasant, no acute distress, answers questions appropriately - Head Head exam: Present: atraumatic, normal inspection - Respiratory Respiratory exam: Present: decreased breath sounds. Absent: rales, respiratory distress, rhonchi, wheezes - Cardiovascular Cardiovascular exam: Present: RRR, +S1, +S2. Absent: diastolic murmur, gallop, rubs, systolic murmur - GI/Abdominal GI/Abdominal exam: Present: normal bowel sounds, soft. Absent: distended, rebound, rigid, tenderness - Extremities Exam Extremities exam: Absent: calf tenderness, pedal edema, tenderness Additional comments: limted ROM in Left hip... Clean incision.. No drainage - Neurological Exam Neurological exam: Present: alert, oriented X3 - Psychiatric Psychiatric exam: Present: depressed Internal Medicine: Result - Labs CBC & Chem 7: 02/21/17 04:54 02/21/17 04:54 Labs: Short CBC 02/20/17 02/21/17 Range/Units 09:28 04:54 WBC 10.0 (4.3-11.1) K/mcL Hgb 9.9 L 9.0 L (11.5-15.4) g/dL Hct 30.8 L 28.7 L (35.3-44.9) % Plt Count 316 (140-400) K/mcL Neutrophils # 8.5 (1.6-8.9) K/mcL BMP 02/21/17 04:54 Sodium 137 Potassium 4.5 Chloride 99 Carbon Dioxide 30 H BUN 24 H Creatinine 0.78 Glucose 114 H Calcium 9.4 - ABG Interpretation ABG results: PT/INR, D-dimer PT 11.7 Seconds (9.4-12.1) 02/18/17 21:39 - Impressions Impressions Fluoroscopy 02/20/17 00:00 IMPRESSION: Intraprocedural fluoroscopic spot images as above. See separate procedure report for more information. D/ / 02/20/2017 11:18:49 [facility] Higgins MD [facility] Inter[facility]ting Provider: Samra Higgins MD Hip X-Ray 02/20/17 07:45 IMPRESSION: Status post left hip surgery. D/ / Samina Duffy Cha, MD / Samina Duffy Cha, MD Interpreting Provider: Samina Duffy Cha, MD - VTE Documentation of Mechanical Device: Venous foot pump, device Consult Discharge Plan - Plan Referrals: Dusty Quiroz MD [Primary Care Provider] -
--- NOTE | 2017-02-21 10:02 | Orthopedics Progress Note ---
Date of Encounter: 02/21/17 Time of Encounter: 10:02 Subjective Interval history: Patient was seen this morning doing well without complaints. Afebrile vital signs stable. Operative extremity: Neurovascularly intact Dressing clean dry and intact Calves nontender Assessment and plan: Continue with postoperative care Objective Vital signs: Vital Signs Temp Pulse Resp BP Pulse Ox 02/21/17 06:45 98.6 F 91 16 148/78 97 02/21/17 03:46 97.4 F L 93 14 138/74 94 02/20/17 23:25 98.2 F 104 19 143/88 92 02/20/17 19:54 98.5 F 105 20 117/74 92 02/20/17 16:10 98.1 F 69 12 113/76 91 02/20/17 12:10 98.8 F 94 16 155/86 95 02/20/17 11:40 98.2 F 91 16 124/73 92 02/20/17 11:27 93 02/20/17 11:10 98.0 F 84 16 154/83 93 02/20/17 10:50 99.1 F 76 16 118/76 94 02/20/17 10:40 77 16 117/76 94 02/20/17 10:30 99.9 F H 83 16 118/76 97 02/20/17 10:20 86 18 139/86 90 02/20/17 10:10 91 18 168/96 90 Intake and Output 02/20/17 02/21/17 02/21/17 23:59 07:59 15:59 Intake Total 100 / 100 0 / 0 Output Total 325 / 325 100 / 100 Balance -225 / -225 -100 / -100 0 / 0 Intake: IV Fluids 100 / 100 Ancef 2,000 MG In 100 / 100 Dextrose 5% 100 ML @ 200 mls/hr IVPB Q8H [facility] Rx#: [id number] Oral 0 / 0 Output: Straight Cath 200 / 200 Catheter 125 / 125 100 / 100 Other: Weight 36.6 kg - Labs CBC & BMP: 02/21/17 04:54 02/21/17 04:54 Labs: Abnormal lab results RBC 3.29 M/mcL (3.82-4.97) L 02/21/17 04:54 Hgb 9.0 g/dL (11.5-15.4) L 02/21/17 04:54 Hct 28.7 % (35.3-44.9) L 02/21/17 04:54 MCH 27.4 pg (28.0-33.3) L 02/21/17 04:54 MCHC 31.4 g/dL (31.6-35.5) L 02/21/17 04:54 MPV 9.3 fL (9.4-12.4) L 02/21/17 04:54 APTT 24.9 Seconds (26.0-36.0) L 02/18/17 21:39 Carbon Dioxide 30 mEq/L (19-29) H 02/21/17 04:54 BUN 24 mg/dL (7-20) H 02/21/17 04:54 BUN/Creatinine Ratio 31 (6-26) H 02/21/17 04:54 Glucose 114 mg/dL (70-99) H 02/21/17 04:54 POC Glucose 116 (58-89) H 02/20/17 06:00 Alkaline Phosphatase 312 Units/L (38-126) H 02/18/17 21:39 Albumin 3.4 g/dL (3.5-5.0) L 02/18/17 21:39 Globulin 3.7 g/dL (2.4-3.5) H 02/18/17 21:39 Albumin/Globulin Ratio 0.9 (1.1-2.2) L 02/18/17 21:39 Triglycerides 152 mg/dL (< 150) H 02/20/17 01:15 LDL Cholesterol, Calc 103 mg/dL (0-99) H 02/20/17 01:15 - VTE Documentation of Mechanical Device: Intermittent pneumatic compression device Consult Discharge Plan - Plan Referrals: Dusty Quiroz MD [Primary Care Provider] -
[2017-02-21] MEDS: *HR* OxyCODONE/APAP 5/325 TABLET PO PRN (15:27)
--- NOTE | 2017-02-21 15:55 | Electrocardiograph Report ---
[place] [address] Test Date: 2017-02-18 Pat Name: Laura Arias Department: 104 Room: [facility] Gender: F Cashier Checker: JUSTINA : 1940 Requested By: Dayday Martin Order Number: [id number] Reading MD: Hill Leon MD Measurements Intervals [place] Rate: 105 P: 19 WV: 139 QRS: -11 QRSD: 85 T: 39 QT: 324 QTc: 385 Interpretive Statements SINUS TACHYCARDIA MODERATE VOLTAGE CRITERIA FOR LVH BASELINE ARTIFACT COMPLICATES ACCURATE INTERPRETATION Electronically Signed On 02-21-2017 15:53:36 EDT by Hill Leon MD
[2017-02-21 21:54] LABS: Folate 13.9 ng/mL (7.0-31.4)
[2017-02-22] MEDS: *HR* Heparin 5,000 UNIT/ML VIAL SQ SCH ×2 (06:06→16:15)
[2017-02-22 06:16] LABS: Hematocrit 27.8 % (35.3-44.9); Hemoglobin 8.9 g/dL (11.5-15.4); Immature Granulocytes % 0.6 % (0-4); Lymphocytes # 0.7 K/mcL (0.6-4.6); Lymphocytes % 10.2 %; Mean Corpuscular Volume 87.4 fL (83.0-100.0); Mean Platelet Volume 8.8 fL (9.4-12.4); Monocytes # 0.5 K/mcL (0.0-1.3); Monocytes % 7.9 %; Neutrophils # 5.6 K/mcL (1.6-8.9); Platelet Count 312 K/mcL (140-400); Red Blood Count 3.18 M/mcL (3.82-4.97); Red Cell Distribution Width 13.8 % (11.5-14.5); Segmented Neutrophils % 81.3 %
--- NOTE | 2017-02-22 06:28 | Orthopedics Progress Note ---
Date of Encounter: 02/22/17 Time of Encounter: 06:28 Subjective Interval history: Patient was seen this morning doing well without complaints. Afebrile vital signs stable. Operative extremity: Neurovascularly intact Dressing clean dry and intact Calves nontender Assessment and plan: Continue with postoperative care Hemoglobin 8.9 ortho stable for discharge Objective Vital signs: Vital Signs Temp Pulse Resp BP Pulse Ox 02/22/17 04:22 97.9 F 107 17 146/94 95 02/21/17 19:41 97.9 F 100 16 155/96 94 02/21/17 15:23 98.6 F 110 16 152/83 93 02/21/17 11:29 98.2 F 111 16 162/97 94 02/21/17 06:45 98.6 F 91 16 148/78 97 Intake and Output 02/21/17 02/21/17 02/22/17 15:59 23:59 07:59 Intake Total 0 / 0 110 / 110 Balance 0 / 0 110 / 110 Intake: Oral 0 / 0 110 / 110 Other: Meal Dinner Percent of Meal Consumed 10% # Urine Diapers 1 - Labs CBC & BMP: 02/22/17 06:01 02/21/17 04:54 Labs: Abnormal lab results RBC 3.18 M/mcL (3.82-4.97) L 02/22/17 06:01 Hgb 8.9 g/dL (11.5-15.4) L 02/22/17 06:01 Hct 27.8 % (35.3-44.9) L 02/22/17 06:01 MPV 8.8 fL (9.4-12.4) L 02/22/17 06:01 APTT 24.9 Seconds (26.0-36.0) L 02/18/17 21:39 Carbon Dioxide 30 mEq/L (19-29) H 02/21/17 04:54 BUN 24 mg/dL (7-20) H 02/21/17 04:54 BUN/Creatinine Ratio 31 (6-26) H 02/21/17 04:54 Glucose 114 mg/dL (70-99) H 02/21/17 04:54 POC Glucose 116 (58-89) H 02/20/17 06:00 Alkaline Phosphatase 312 Units/L (38-126) H 02/18/17 21:39 Albumin 3.4 g/dL (3.5-5.0) L 02/18/17 21:39 Globulin 3.7 g/dL (2.4-3.5) H 02/18/17 21:39 Albumin/Globulin Ratio 0.9 (1.1-2.2) L 02/18/17 21:39 Triglycerides 152 mg/dL (< 150) H 02/20/17 01:15 LDL Cholesterol, Calc 103 mg/dL (0-99) H 02/20/17 01:15 25-OH Vitamin D Total 18 ng/mL (30-80) L 02/20/17 01:15 - VTE Documentation of Mechanical Device: Venous foot pump, device Consult Discharge Plan - Plan Referrals: Dusty Quiroz MD [Primary Care Provider] -
--- NOTE | 2017-02-22 11:31 | Internal Med Progress Note ---
<DarinrazaKp stoddard - Last Filed: 02/22/17 15:12> Date of Encounter: 02/22/17 Time of Encounter: 11:15 - Assessment and plan (1) Intertrochanteric fracture of left hip Current Visit: Yes Status: Acute Assessment and plan: s/p Left hip open reduction intramedullary nail fixation POD #1 So far stable Hb AT 8.9 Cont post op care as per ortho PT / OT eval on SQ heparin for DVT prophylaxis May need out pt bone scan and further treatment for osteoporosis Reviewed 2 D Echo - Normal LVEF 60%, mild diastolic dysfunction Qualifiers: Encounter type: initial encounter Fracture type: closed Fracture alignment: nondisplaced Qualified Code(s): S72.145A - Nondisplaced intertrochanteric fracture of left femur, initial encounter for closed fracture (2) Depression Current Visit: Yes Status: Acute Assessment and plan: Resumed home meds Paxil at 10mg BID for her anxiety / agitation. will cont Haldol PRN for now Qualifiers: Qualified Code(s): F32.9 - Major depressive disorder, single episode, unspecified (3) Dementia Current Visit: Yes Status: Acute Assessment and plan: family denied of any dementia it is more like severe depression Qualifiers: Qualified Code(s): F03.90 - Unspecified dementia without behavioral disturbance (4) Failure to thrive in adult Current Visit: Yes Status: Acute Assessment and plan: Possibly due to Depression Talked to family.. as per them she has been having major depression with maniac episodes from last 1 to 1 1/2 yrs.. She is been following with psychiatrist , currently he is titrating her Paxil for anxiety Seems to be doing ok with Paxil at 10mg BID Her Pre albumin levels at low normal @ 16 Nutrition consulted Protein supplements with each meal TSH - WNL Vit D, B12, Folic acid- P (5) Protein-calorie malnutrition, severe Current Visit: Yes Status: Acute Assessment and plan: Tobacco Shaker consulted (6) Urinary tract infection Current Visit: Yes Status: Acute Assessment and plan: finished home PO abx Cipro on 02/20. Patient currently afebrile, but she is tachycardic and her hemoglobin has been stable. Will order UA and CXR. Qualifiers: Qualified Code(s): N39.0 - Urinary tract infection, site not specified (7) DVT prophylaxis Current Visit: Yes Status: Acute Assessment and plan: on Lovenox SQ inj - Time Spent With Patient less than 15 minutes - Subjective Interval history: Patient is a 76 yo F with a PMH of dementia, depression, and HTN that presented to the ED s/p fall. Patient had a [facility] due to a previous coccyx fracture . Patient fell on her L side. She denies LOC. X-ray of L elbow showed soft swelling of olecranon. Head CT showed no acute intracranial abnormality. CT of pelvis showd L hip intertrochanteric fracture. Patient was subsequently underwent L hip open reduction intramedullary nail fixation on 02/20/17. Patient has also been very depressed recently according to her family and has had significant weight loss ( 20-25 lbs in 6 months). She is currently on her home meds and is following a psychiatrist. medical services manager is currently working to get her placed in SNF/ ECF. When seen toay, patient was A&Ox2. She seemed very lethargic and was difficult for her to answer my questions. She told me that she has been eating her meals, but last nurse note says she has refused to eat. She denies any headaches, light-headedness, syncope, shortness of breath, nausea, vomiting, chest pain, or L hip pain. - Constitutional Vitals: Temp Pulse Resp BP Pulse Ox 98.2 F 105 16 168/106 94 02/22/17 11:06 02/22/17 11:06 02/22/17 11:06 02/22/17 11:06 02/22/17 11:06 General appearance: Present: cachectic, A&O X 2, pleasant, no acute distress, underweight, answers questions appropriately - Respiratory Respiratory exam: Present: CTAB. Absent: respiratory distress, rhonchi, wheezes , tachypnea - Cardiovascular Cardiovascular exam: Present: +S1, +S2, tachycardia. Absent: diastolic murmur, systolic murmur - GI/Abdominal GI/Abdominal exam: Present: normal bowel sounds, soft. Absent: distended, guarding, rebound, tenderness - Extremities Exam Extremities exam: Present: radial pulses palpable and symmetrical. Absent: pedal edema, tenderness Additional comments: Dressing on surgical site of L hip intact with no signs of erythema, pus, or drainage. No tenderness to palpation to surgical site. Pedal pulses intact bilaterally. Internal Medicine: Result - Labs CBC & Chem 7: 02/22/17 06:01 02/21/17 04:54 Labs: Short CBC 02/22/17 Range/Units 06:01 WBC 6.8 (4.3-11.1) K/mcL Hgb 8.9 L (11.5-15.4) g/dL Hct 27.8 L (35.3-44.9) % Plt Count 312 (140-400) K/mcL Neutrophils # 5.6 (1.6-8.9) K/mcL - ABG Interpretation ABG results: PT/INR, D-dimer PT 11.7 Seconds (9.4-12.1) 02/18/17 21:39 - VTE Documentation of Mechanical Device: Venous foot pump, device Consult Discharge Plan - Plan Referrals: Dusty Quiroz MD [Primary Care Provider] - <Yobani Velasco H - Last Filed: 02/22/17 16:18> Date of Encounter: 02/22/17 - Constitutional Vitals: Temp Pulse Resp BP Pulse Ox 98.9 F 112 16 157/97 93 02/22/17 16:11 02/22/17 16:11 02/22/17 16:11 02/22/17 16:11 02/22/17 16:11 Internal Medicine: Result - Labs CBC & Chem 7: 02/22/17 06:01 02/21/17 04:54 Labs: Short CBC 02/22/17 Range/Units 06:01 WBC 6.8 (4.3-11.1) K/mcL Hgb 8.9 L (11.5-15.4) g/dL Hct 27.8 L (35.3-44.9) % Plt Count 312 (140-400) K/mcL Neutrophils # 5.6 (1.6-8.9) K/mcL - ABG Interpretation ABG results: PT/INR, D-dimer PT 11.7 Seconds (9.4-12.1) 02/18/17 21:39 - Impressions Impressions Chest X-Ray 02/22/17 15:10 IMPRESSION: Stable examination without acute focal process. Tortuous thoracic aorta. Findings of COPD and emphysema. D/ / Adeel Jane MD / Adeel Jane MD Interpreting Provider: Adeel Jane MD - Attending Attestation Correction: Time spent in the process 35 minutes Check a UA and a chest x-ray Fall precautions I examined this patient and my medical decision-making was reviewed with the Resident Physician. I agree with the documented findings, disposition and treatment plan as described except to the extent set forth below.
--- NOTE | 2017-02-22 12:33 | Event Note ---
Date of Encounter: 02/22/17 Time of Encounter: 12:32 Left Hip - IM nailing 02/20/17 - PWB POD#5 Patient seen at bedside. Pain control: yes Participating in PT, but appetite poor. Depression noted. All questions and concerns addressed. Educated on use of incentive spirometer, ambulation, and hydration. D/C plan: ECF
[2017-02-22] MEDS: *HR* OxyCODONE/APAP 5/325 TABLET PO PRN (17:42)
[2017-02-23] MEDS: *HR* Heparin 5,000 UNIT/ML VIAL SQ SCH ×2 (05:30→17:09)
[2017-02-23 06:47] LABS: Hematocrit 26.9 % (35.3-44.9); Hemoglobin 8.4 g/dL (11.5-15.4); Immature Granulocytes % 0.7 % (0-4); Lymphocytes # 0.6 K/mcL (0.6-4.6); Lymphocytes % 10.7 %; Mean Corpuscular HGB Conc 31.2 g/dL (31.6-35.5); Mean Corpuscular Hemoglobin 27.2 pg (28.0-33.3); Mean Corpuscular Volume 87.1 fL (83.0-100.0); Monocytes # 0.4 K/mcL (0.0-1.3); Monocytes % 7.3 %; Neutrophils # 4.9 K/mcL (1.6-8.9); Platelet Count 377 K/mcL (140-400); Red Blood Count 3.09 M/mcL (3.82-4.97); Red Cell Distribution Width 13.7 % (11.5-14.5); Segmented Neutrophils % 81.3 %
[2017-02-23 06:56] LABS: BUN/Creatinine Ratio 42 (6-26); Blood Urea Nitrogen 27 mg/dL (7-20); Calcium 9.3 mg/dL (8.6-10.8); Carbon Dioxide 29 mEq/L (19-29); Chloride 101 mEq/L (98-109); Glucose 119 mg/dL (70-99); Magnesium 1.7 mg/dL (1.6-2.6); Osmolality,Calculated 292 (280-300); Potassium 3.9 mEq/L (3.5-4.5); Sodium 138 mEq/L (136-145); eGFR For African Americans > 60 (> 60); eGFR For Non-African Americans > 60 (> 60)
[2017-02-23] MEDS: *HR* OxyCODONE/APAP 5/325 TABLET PO PRN ×2 (10:14→17:17)
--- NOTE | 2017-02-23 10:50 | Internal Med Progress Note ---
<Kp Wall - Last Filed: 02/23/17 11:04> Date of Encounter: 02/23/17 Time of Encounter: 11:00 - Assessment and plan (1) Intertrochanteric fracture of left hip Current Visit: Yes Status: Acute Assessment and plan: s/p Left hip open reduction intramedullary nail fixation POD #1 HGB dropped from 8.9 to 8.4. Cont post op care as per ortho PT / OT eval on SQ heparin for DVT prophylaxis May need out pt bone scan and further treatment for osteoporosis Reviewed 2 D Echo - Normal LVEF 60%, mild diastolic dysfunction Qualifiers: Encounter type: initial encounter Fracture type: closed Fracture alignment: nondisplaced Qualified Code(s): S72.145A - Nondisplaced intertrochanteric fracture of left femur, initial encounter for closed fracture (2) Depression Current Visit: Yes Status: Acute Assessment and plan: Resumed home meds Paxil at 10mg BID for her anxiety / agitation. will cont Haldol PRN for now Qualifiers: Qualified Code(s): F32.9 - Major depressive disorder, single episode, unspecified (3) Dementia Current Visit: Yes Status: Acute Assessment and plan: family denied of any dementia it is more like severe depression Qualifiers: Qualified Code(s): F03.90 - Unspecified dementia without behavioral disturbance (4) Failure to thrive in adult Current Visit: Yes Status: Acute Assessment and plan: Possibly due to Depression Talked to family.. as per them she has been having major depression with maniac episodes from last 1 to 1 1/2 yrs.. She is been following with psychiatrist , currently he is titrating her Paxil for anxiety Seems to be doing ok with Paxil at 10mg BID Her Pre albumin levels at low normal @ 16 Nutrition consulted Protein supplements with each meal TSH - WNL Vit D, B12, Folic acid- P (5) Protein-calorie malnutrition, severe Current Visit: Yes Status: Acute Assessment and plan: Station Superintendent consulted (6) Urinary tract infection Current Visit: Yes Status: Acute Assessment and plan: finished home PO abx Cipro on 02/20. Patient currently afebrile, but she is tachycardic and her hemoglobin has been stable. UA pending. CXR revealed no acute focal process and showed signs of COPD and emphysema. Qualifiers: Qualified Code(s): N39.0 - Urinary tract infection, site not specified (7) DVT prophylaxis Current Visit: Yes Status: Acute Assessment and plan: on Lovenox SQ inj (8) Acute delirium Current Visit: Yes Status: Acute Assessment and plan: Patient has been showing hallucinations today, describing seeing her daughter across the bed when there was nobody there. Her UA is currently pending and we will try to r/o a UTI. She is currently afebrile. Her paxil dosage was increase to 10 mg BID so that might also be another cause to consider. Follow-up with UA. (9) Tachycardia Current Visit: Yes Status: Acute Assessment and plan: Patient's hemoglobin was dropped from 8.9 to 8.4. Patient's tachycardia might be secondary to blood loss vs UTI. CXR showed no acute focal process. Afebrile. Will follow-up with UA. Continue to monitor hgb. - Subjective Interval history: Patient is a 76 yo F with a PMH of dementia, depression, and HTN that presented to the ED s/p fall. Patient had a witnessed mechanical fall in the [facility] where she was staying due to a previous coccyx fracture . Patient fell on her L side. She denies LOC. X-ray of L elbow showed soft swelling of olecranon. Head CT showed no acute intracranial abnormality. CT of pelvis showd L hip intertrochanteric fracture. Patient was subsequently underwent L hip open reduction intramedullary nail fixation on 02/20/17. Patient has also been very depressed recently according to her family and has had significant weight loss ( 20-25 lbs in 6 months). She is currently on her home meds and is following a psychiatrist. director of volunteer services is currently working to get her placed in SNF/ ECF. When seen today, patient was A&Ox3 but showed clear signs of dementia. She says she feels the same since yesterday but denies any fever, chills, nausea, vomiting, chest pain, abdominal pain, shortness of breath, syncope, light- headedness, or dizziness. Patient also demonstrated visual hallucinations today , stating that her daughter was across the bed from her. I was unable to finish my physical examination because she refused. - Constitutional Vitals: Temp Pulse Resp BP Pulse Ox 98.1 F 65 14 121/73 95 02/23/17 09:08 02/23/17 09:08 02/23/17 09:08 02/23/17 09:08 02/23/17 09:08 General appearance: Present: cachectic, A&O X 3, no acute distress, underweight , answers questions appropriately - Respiratory Respiratory exam: Present: accessory muscle use, CTAB. Absent: respiratory distress, rhonchi, wheezes, tachypnea - Cardiovascular Cardiovascular exam: Present: +S1, +S2, tachycardia. Absent: diastolic murmur, systolic murmur Additional comments: Chest palpitations noted. Internal Medicine: Result - Labs CBC & Chem 7: 02/23/17 06:23 02/23/17 06:23 Labs: Short CBC 02/23/17 Range/Units 06:23 WBC 6.0 (4.3-11.1) K/mcL Hgb 8.4 L (11.5-15.4) g/dL Hct 26.9 L (35.3-44.9) % Plt Count 377 (140-400) K/mcL Neutrophils # 4.9 (1.6-8.9) K/mcL BMP 02/23/17 06:23 Sodium 138 Potassium 3.9 Chloride 101 Carbon Dioxide 29 BUN 27 H Creatinine 0.64 Glucose 119 H Calcium 9.3 Laboratory Tests 02/23/17 06:23 Magnesium 1.7 - ABG Interpretation ABG results: PT/INR, D-dimer PT 11.7 Seconds (9.4-12.1) 02/18/17 21:39 - Impressions Impressions Chest X-Ray 02/22/17 15:10 IMPRESSION: Stable examination without acute focal process. Tortuous thoracic aorta. Findings of COPD and emphysema. D/ / Adeel Jane MD / Adeel Jane MD Interpreting Provider: Adeel Jane MD - VTE Documentation of Mechanical Device: Venous foot pump, device Consult Discharge Plan - Plan Referrals: Dusty Quiroz MD [Primary Care Provider] - <Yobani Velasco H - Last Filed: 02/23/17 11:29> Date of Encounter: 02/23/17 - Constitutional Vitals: Temp Pulse Resp BP Pulse Ox 98.5 F 58 16 126/78 95 02/23/17 11:23 02/23/17 11:23 02/23/17 11:23 02/23/17 11:23 02/23/17 11:23 Internal Medicine: Result - Labs CBC & Chem 7: 02/23/17 06:23 02/23/17 06:23 Labs: Short CBC 02/23/17 Range/Units 06:23 WBC 6.0 (4.3-11.1) K/mcL Hgb 8.4 L (11.5-15.4) g/dL Hct 26.9 L (35.3-44.9) % Plt Count 377 (140-400) K/mcL Neutrophils # 4.9 (1.6-8.9) K/mcL BMP 02/23/17 06:23 Sodium 138 Potassium 3.9 Chloride 101 Carbon Dioxide 29 BUN 27 H Creatinine 0.64 Glucose 119 H Calcium 9.3 - ABG Interpretation ABG results: PT/INR, D-dimer PT 11.7 Seconds (9.4-12.1) 02/18/17 21:39 - Impressions Impressions Chest X-Ray 02/22/17 15:10 IMPRESSION: Stable examination without acute focal process. Tortuous thoracic aorta. Findings of COPD and emphysema. D/ / Adeel Jane MD / Adeel Jane MD Interpreting Provider: Adeel Jane MD - Attending Attestation Still tachycardic, UA ordered placed yesterday, not performed. Reorder today Recheck CBC stat I examined this patient and my medical decision-making was reviewed with the Resident Physician. I agree with the documented findings, disposition and treatment plan as described except to the extent set forth below.
[2017-02-23 12:14] LABS: Hematocrit 28.4 % (35.3-44.9); Hemoglobin 8.7 g/dL (11.5-15.4); Immature Granulocytes % 0.5 % (0-4); Lymphocytes # 0.6 K/mcL (0.6-4.6); Lymphocytes % 10.1 %; Mean Corpuscular HGB Conc 30.6 g/dL (31.6-35.5); Mean Corpuscular Hemoglobin 26.5 pg (28.0-33.3); Mean Corpuscular Volume 86.6 fL (83.0-100.0); Monocytes # 0.5 K/mcL (0.0-1.3); Monocytes % 7.7 %; Neutrophils # 5.2 K/mcL (1.6-8.9); Platelet Count 418 K/mcL (140-400); Red Blood Count 3.28 M/mcL (3.82-4.97); Red Cell Distribution Width 13.5 % (11.5-14.5); Segmented Neutrophils % 81.7 %
[2017-02-23 12:22] LABS: Bilirubin,Urine Negative (Negative); Blood,Urine Negative (Negative); Clarity,Urine Clear (Clear); Color,Urine Yellow (Yellow); Glucose,Urine (UA) 100 mg/dL (Normal); Ketones,Urine Negative (Negative); Leukocyte Esterase,Urine Negative (Negative); Nitrite,Urine Negative (Negative); Protein,Urine Negative (Neg-Trace); Urobilinogen,Urine Normal (Normal)
[2017-02-24] MEDS: *HR* OxyCODONE/APAP 5/325 TABLET PO PRN (00:29)
[2017-02-24 05:12] LABS: Basophils % 0.2 %; Hematocrit 27.2 % (35.3-44.9); Hemoglobin 8.5 g/dL (11.5-15.4); Immature Granulocytes % 0.9 % (0-4); Immature Platelets 1.3 % (1.1-6.1); Lymphocytes % 17.4 %; Mean Corpuscular HGB Conc 31.3 g/dL (31.6-35.5); Mean Corpuscular Hemoglobin 27.5 pg (28.0-33.3); Mean Platelet Volume 8.9 fL (9.4-12.4); Monocytes # 0.5 K/mcL (0.0-1.3); Monocytes % 8.1 %; Neutrophils # 4.3 K/mcL (1.6-8.9); Platelet Count 458 K/mcL (140-400); Red Blood Count 3.09 M/mcL (3.82-4.97); Red Cell Distribution Width 13.7 % (11.5-14.5); Segmented Neutrophils % 73.4 %
[2017-02-24] MEDS: *HR* Heparin 5,000 UNIT/ML VIAL SQ SCH (06:20)
[2017-02-24 06:32] LABS: BUN/Creatinine Ratio 44 (6-26); Blood Urea Nitrogen 28 mg/dL (7-20); Calcium 9.4 mg/dL (8.6-10.8); Carbon Dioxide 30 mEq/L (19-29); Chloride 101 mEq/L (98-109); Glucose 102 mg/dL (70-99); Magnesium 1.9 mg/dL (1.6-2.6); Osmolality,Calculated 294 (280-300); Potassium 4.4 mEq/L (3.5-4.5); Sodium 139 mEq/L (136-145); eGFR For African Americans > 60 (> 60); eGFR For Non-African Americans > 60 (> 60)
[2017-02-24] MEDS ORDERED: Metoprolol XL (24 HR) Succ 25 MG TAB.ER.24H PO SCH (09:00)
--- NOTE | 2017-02-24 09:42 | Discharge Summary ---
<Kp Wall - Last Filed: 02/24/17 09:40> Date of Encounter: 02/24/17 Time of Encounter: 10:00 - Discharge Diagnosis (1) Intertrochanteric fracture of left hip Priority: Primary Status: Acute Qualifiers: Encounter type: initial encounter Fracture type: closed Fracture alignment: nondisplaced Qualified Code(s): S72.145A - Nondisplaced intertrochanteric fracture of left femur, initial encounter for closed fracture (2) Depression Priority: Secondary Status: Acute Qualifiers: Qualified Code(s): F32.9 - Major depressive disorder, single episode, unspecified (3) Dementia Priority: Secondary Status: Acute Qualifiers: Qualified Code(s): F03.90 - Unspecified dementia without behavioral disturbance (4) Failure to thrive in adult Priority: Primary Status: Acute (5) Protein-calorie malnutrition, severe Priority: Primary Status: Acute (6) Urinary tract infection Priority: Primary Status: Acute Qualifiers: Qualified Code(s): N39.0 - Urinary tract infection, site not specified (7) DVT prophylaxis Priority: Primary Status: Acute (8) Acute delirium Priority: Primary Status: Acute (9) Tachycardia Priority: Primary Status: Acute (10) Anemia following surgery Priority: Secondary Status: Acute - Discharge Medications Prescriptions: OxyCODONE/APAP 5/325 [Percocet 5/325 MG] 1 each PO Q8HR PRN #10 tab PRN Reason: Moderate Pain Enoxaparin [Lovenox] 30 mg SQ DAILY #14 syr Metoprolol XL (24 HR) Succ [Toprol Xl] 12.5 mg PO DAILY #30 tab Home Medications: Acetaminophen [Tylenol] 650 mg PO Q8H PRN 02/18/17 [History] Multivitamin-Min/Iron/FA/Vit K [Multi-Day Plus Minerals Tablet] 1 each PO DAILY 02/18/17 [History] OLANZapine [Zyprexa] 1.25 mg PO DAILY PRN 02/18/17 [History] PARoxetine HCl [Paroxetine HCl] 5 mg PO TID 02/18/17 [History] Polyethylene Glycol 3350 [MiraLAX] 17 gm PO DAILY PRN 02/18/17 [History] Tramadol HCl [Ultram] 50 mg PO Q6H PRN 02/18/17 [History] Enoxaparin [Lovenox] 30 mg SQ DAILY #14 syr 02/24/17 [Rx] Metoprolol XL (24 HR) Succ [Toprol Xl] 12.5 mg PO DAILY #30 tab 02/24/17 [Rx] OxyCODONE/APAP 5/325 [Percocet 5/325 MG] 1 each PO Q8HR PRN #10 tab 02/24/17 [Rx ] Allergies/Adverse Reactions: 3 Allergy/AdvReac Type Severity Reaction Status Date / Time aspirin Allergy Hives Verified 02/18/17 18:04 codeine Allergy Hives Verified 02/18/17 18:04 Sulfa (Sulfonamide Allergy Hives Verified 02/18/17 18:04 Antibiotics) Date of admission: 02/19/17 16:02 Primary care physician: Dusty Quiroz, Consults: 02/20/17 10:53 Consult to Occupational Therapy [CONS] Routine Comment: Evaluate, develop and implement POC Reason for Consult: post hip surgery Consult to Orthopedic Navigator [CONS] [CONS] Routine Consult to Physical Therapy [CONS] Routine Comment: Evaluate, develop and implement POC Reason for Consult: post hip surgery Consult to Wet Wheeler [CONS] Routine Reason for SW Consult: post -op hip fracture RT Post Op Consult [CONS] Routine Discharging clinician: Yobani Velasco Anticipated date of discharge: 02/24/17 - Patient Status Disposition: Transfer Inpatient Rehab Fac Condition: Good Overall status at discharge: patient is progressing back to baseline - Discharge Instructions Instructions: Oxycodone/Acetaminophen (By mouth) Follow Up With: Dusty Quiroz MD [Primary Care Provider] - - Diet and Activity Activity: as per physical therapy Diet: other (Per teacher of the deaf/hard of hearing. ) Hospital course: Ms. Arias is a 76 year old female with a PMH of dementia, depression, and HTN that presented to the ED s/p fall. Patient had a [facility] due to a previous coccyx fracture . Patient fell on her L side. She denies LOC. X-ray of L elbow showed soft swelling of olecranon. Head CT showed no acute intracranial abnormality. CT of pelvis showd L hip intertrochanteric fracture. Patient was subsequently underwent L hip open reduction intramedullary nail fixation on 02/20/17. Patient has also been very depressed recently according to her family and has had significant weight loss (20-25 lbs in 6 months). She is currently on her home meds and is following a psychiatrist. Patient also presented to the ED with a UTI for which she was already being treated for with ciprofloxacin and completed her course within 2 days at [facility]. Patient has been intermittently showing signs of tachycardia. She has not been tachypneic and has been afebrile with a normal WBC count. Chest x-ray was ordered and revealed no acute process. A UA was also ordered and showed no signs of infection. Patient's hemoglobin has been stable, currently at 8.5. When seen today, patient is A&Ox3. She denies any shortness of breath, chest pain, nausea, vomiting, light-headedness, dizziness, syncope, or numbness/tingling. Plan is to discharge patient to ECF. - Time Spent with Patient Total time spent providing and/or coordinating discharge services: Greater than 30 minutes - Constitutional Vitals: Temp Pulse Resp BP Pulse Ox 98.4 F 105 16 158/92 94 02/24/17 06:45 02/24/17 06:45 02/24/17 06:45 02/24/17 06:45 02/24/17 06:45 General appearance: Present: cachectic, A&O X 3, no acute distress, underweight , answers questions appropriately - Respiratory Respiratory exam: Present: CTAB. Absent: respiratory distress, rhonchi, wheezes , tachypnea - Cardiovascular Cardiovascular exam: Present: +S1, +S2, tachycardia - GI/Abdominal GI/Abdominal exam: Present: normal bowel sounds, soft. Absent: guarding, rebound, tenderness - Extremities Exam Extremities exam: Present: radial pulses palpable and symmetrical. Absent: cyanotic, pedal edema Additional comments: Pedal pulses intact bilaterally. L hip surgical dressing intact. No sings of active bleeding, pus, or drainage. Minor tenderness to palpation of L hip. - VTE Documentation of Mechanical Device: Venous foot pump, device <Yobani Velasco - Last Filed: 02/24/17 15:29> Date of Encounter: 02/24/17 Date of admission: 02/19/17 16:02 Primary care physician: Dusty Quiroz, Consults: 02/20/17 10:53 Consult to Occupational Therapy [CONS] Routine Comment: Evaluate, develop and implement POC Reason for Consult: post hip surgery Consult to Orthopedic Navigator [CONS] [CONS] Routine Consult to Physical Therapy [CONS] Routine Comment: Evaluate, develop and implement POC Reason for Consult: post hip surgery Consult to Wet Wheeler [CONS] Routine Reason for SW Consult: post -op hip fracture RT Post Op Consult [CONS] Routine Hospital course: Ms. Arias is a 76 year old female - Time Spent with Patient Total time spent providing and/or coordinating discharge services: - Constitutional Vitals: Temp Pulse Resp BP Pulse Ox 98.3 F 97 18 156/92 95 02/24/17 11:11 02/24/17 11:11 02/24/17 11:11 02/24/17 11:11 02/24/17 11:11 - Attending Attestation Left hip fracture status post ORIF Acute blood lows anemia secondary to surgical procedure, stable Spent on discharge 36 minutes I examined this patient and my medical decision-making was reviewed with the Resident Physician. I agree with the documented findings, disposition and treatment plan as described except to the extent set forth below.
--- NOTE | 2017-02-24 10:22 | Physician Discharge Referral ---
ExtendedCare Referral Info Transfer To: [facility] Provider in Charge: Dr. Srinivasan Provider in Charge after Transfer: PCP - Diagnosis (1) Intertrochanteric fracture of left hip Priority: Primary Status: Acute (2) Depression Priority: Secondary Status: Acute (3) Dementia Priority: Secondary Status: Acute (4) Failure to thrive in adult Priority: Primary Status: Acute (5) Protein-calorie malnutrition, severe Priority: Primary Status: Acute (6) Urinary tract infection Priority: Primary Status: Acute (7) DVT prophylaxis Status: Acute (8) Acute delirium Priority: Primary Status: Acute (9) Tachycardia Priority: Primary Status: Acute (10) Anemia following surgery Priority: Primary Status: Acute - Transfer Medications Prescriptions: OxyCODONE/APAP 5/325 [Percocet 5/325 MG] 1 each PO Q8HR PRN #10 tab PRN Reason: Moderate Pain Enoxaparin [Lovenox] 30 mg SQ DAILY #14 syr Metoprolol XL (24 HR) Succ [Toprol Xl] 12.5 mg PO DAILY #30 tab Home Medications: Acetaminophen [Tylenol] 650 mg PO Q8H PRN 02/18/17 [History] Multivitamin-Min/Iron/FA/Vit K [Multi-Day Plus Minerals Tablet] 1 each PO DAILY 02/18/17 [History] OLANZapine [Zyprexa] 1.25 mg PO DAILY PRN 02/18/17 [History] PARoxetine HCl [Paroxetine HCl] 5 mg PO TID 02/18/17 [History] Polyethylene Glycol 3350 [MiraLAX] 17 gm PO DAILY PRN 02/18/17 [History] Tramadol HCl [Ultram] 50 mg PO Q6H PRN 02/18/17 [History] Enoxaparin [Lovenox] 30 mg SQ DAILY #14 syr 02/24/17 [Rx] Metoprolol XL (24 HR) Succ [Toprol Xl] 12.5 mg PO DAILY #30 tab 02/24/17 [Rx] OxyCODONE/APAP 5/325 [Percocet 5/325 MG] 1 each PO Q8HR PRN #10 tab 02/24/17 [Rx ] Allergies/Adverse Reactions: 3 Allergy/AdvReac Type Severity Reaction Status Date / Time aspirin Allergy Hives Verified 02/18/17 18:04 codeine Allergy Hives Verified 02/18/17 18:04 Sulfa (Sulfonamide Allergy Hives Verified 02/18/17 18:04 Antibiotics) - Respiratory Orders Smoking Cessation: Smoking cessation has been advised. For more information, call the [place] Tobacco Quit Line at 6-476-CEIP-NOW. - Lab Orders Lab Orders: CBC - Ancillary Orders May use pressure relief devices daily prn, May consult with Dentist, Medical Laboratory Technologist, Braid Cutter PRN - Advance Directives Code Status: Full Code - Mobility Orders Other - Treatments Skin tear care topically daily PRN per policy, May check for fecal impaction rectally daily PRN, Fleet enema rectally every other day PRN cleansing purposes - Diet Orders Regular (Per airport ramp agent. Patient is being treated for protein-calorie malnutrition.) CERTIFICATION: I certify that the transfer of the above named patient to an Extended Care Facility is necessary for the continuing treatment of the diagnosis listed. The above information is true and accurate reflection of patient's current condition. Confidential - Redisclosure prohibited without a patient's written consent.
[2017-02-24 11:12] VITALS: BP 156/92
== END 2017-02-24 13:22 | DRG 480 ==
LOC: EMEROO 17:52 → 3NENU 17:52 → SUATTDRO 02-19 16:02
PROVIDERS: ADMIT Family Medicine; ATTEND Internal Medicine